=== PATIENT | female | born 1955 | race Native Hawaiian/Other Pacific Islander ===

== ENCOUNTER 2017-08-31 13:01 | Outpatient (CLI) | payer BC ==
[~2017-08-31 13:01] MED LIST: ASPIRIN LOW STR81 MG OR; BRILINTA90 MG OR; LIPITOR40 MG PO; METOPROLOL25 M1 OR
== END 2017-08-31 19:00 | disposition home or self-care (01) ==
LOC: MAMMO 13:01
DX: Z12.31 Encounter for screening mammogram for malignant neoplasm of breast (principal)

== ENCOUNTER 2017-09-25 14:02 | Outpatient (CLI) | payer BC | END 2017-09-25 15:10 | disposition home or self-care (01) | LOC: MAMMO 14:02 | DX: N64.59 Other signs and symptoms in breast (principal); Z12.31 Encounter for screening mammogram for malignant neoplasm of breast ==

== ENCOUNTER 2018-09-05 10:58 | Outpatient (CLI) | payer BC | END 2018-09-05 20:36 | disposition home or self-care (01) | LOC: MAMMO 10:58 | DX: Z12.31 Encounter for screening mammogram for malignant neoplasm of breast (principal) ==

== ENCOUNTER 2019-09-23 08:26 | Outpatient (CLI) | payer OTHER | END 2019-09-23 19:41 | disposition home or self-care (01) | LOC: MAMMO 08:26 | DX: Z12.31 Encounter for screening mammogram for malignant neoplasm of breast (principal) ==

== ENCOUNTER 2020-10-04 10:55 | Outpatient (CLI) | payer OTHER | END 2020-10-04 19:02 | disposition home or self-care (01) | LOC: MAMMO 10:55 | PROVIDERS: ATTEND Internal Medicine | DX: Z12.31 Encounter for screening mammogram for malignant neoplasm of breast (principal) ==

== ENCOUNTER 2021-10-10 09:06 | Outpatient (CLI) | payer OTHER | END 2021-10-10 19:02 | disposition home or self-care (01) | LOC: MAMMO 09:06 | PROVIDERS: ATTEND Internal Medicine | DX: Z12.31 Encounter for screening mammogram for malignant neoplasm of breast (principal) ==

== ENCOUNTER 2022-11-28 09:41 | Outpatient (CLI) | payer OTHER | END 2022-11-28 19:09 | disposition home or self-care (01) | LOC: MAMMO 09:41 | PROVIDERS: ATTEND Internal Medicine | DX: Z12.31 Encounter for screening mammogram for malignant neoplasm of breast (principal) ==